=== PATIENT | female | born 1980 | race Two or more races ===

== ENCOUNTER 2022-04-08 17:17 | Inpatient (IN) | payer OTHER ==
[~2022-04-08] VITALS: Ht 157.5 cm; Wt 64.9 kg
[2022-04-08] MEDS ORDERED: IRON325 MG (17:56)
[2022-04-08] MEDS ORDERED: PANADOL (17:56)
[2022-04-11] MEDS ORDERED: PANADOL EXTRA500 MG (16:24)
== END 2022-04-12 20:27 | disposition home or self-care (01) | DRG 690 ==
LOC: ER 17:17 → MEDI 04-09 17:39 → SEC-K 04-09 17:39 → MEDI 04-09 20:50
PROVIDERS: ADMIT Internal Medicine; ATTEND Internal Medicine
PROC: BW28ZZZ Computerized Tomography (CT Scan) of Head (ICD-10-PCS; 2022-04-09)
PROC: BW21ZZZ Computerized Tomography (CT Scan) of Abdomen and Pelvis (ICD-10-PCS; 2022-04-09)
PROC: 30233N1 Transfusion of Nonautologous Red Blood Cells into Peripheral Vein, Percutaneous Approach (ICD-10-PCS; principal; 2022-04-10)
DX: N39.0 Urinary tract infection, site not specified (principal); M62.82 Rhabdomyolysis; D64.89 Other specified anemias; E87.6 Hypokalemia; R56.9 Unspecified convulsions; B96.1 Klebsiella pneumoniae [K. pneumoniae] as the cause of diseases classified elsewhere